=== PATIENT | male | born 1995 | race Caucasian/White ===

== ENCOUNTER → 2016-09-18 | Outpatient (CLI) | payer OTHER ==
--- NOTE | 2016-09-18 08:41 | US ---
EXAMINATION TYPE: US abdomen complete DATE OF EXAM: 09/18/2016 COMPARISON: NONE CLINICAL HISTORY: 21-year-old male R10.9 Abd pain. TECHNIQUE: Multiple sonographic images of the abdomen are obtained. FINDINGS: Liver Length: 14.5 cm Gallbladder Wall: 0.2 cm CBD: 0.2 cm Spleen: 11.3 cm Right Kidney: 11.5 x 4.0 x 4.9 cm Left Kidney: 12.4 x 5.5 x 5.6 cm Pancreas: The pancreatic tail and most of the pancreatic body is obscured secondary to shadowing fro m bowel gas. The visualized pancreatic head and neck show no gross abnormality. Liver: wnl Gallbladder: No abnormal gallbladder distention, wall thickening, pericholecystic fluid, or shadowin g calculi. Evidence for sonographic Beaulieu's sign: no CBD: wnl Spleen: wnl Right Kidney: no evidence of hydronephrosis. Left Kidney: no evidence of hydronephrosis. Upper IVC: wnl Abd Aorta: visualized portions appear wnl, mid obscured by overlying bowel IMPRESSION: Suboptimal visualization of the pancreas and mid abdominal aorta. Otherwise, unremarkable sonographic examination of the abdomen.
== END | disposition home or self-care (01) ==
LOC: RADUSWWP 07:16
PROVIDERS: ATTEND Family Medicine
DX: R10.9 Unspecified abdominal pain (principal)
CPT/HCPCS: 76700